=== PATIENT | female | born 1965 | race Caucasian/White ===

== ENCOUNTER 2019-09-02 21:56 | Emergency (ER) | payer BC, OTHER ==
[~2019-09-02] VITALS: Ht 165.1 cm; Wt 59.4 kg
[~2019-09-02 21:56] MED LIST: ACYCLOVIR 200200 MG PO; ACYCLOVIR 800800 MG PO; ALLEGRA-D 24 H1 EACH PO; CINNAMON PLUS1 EACH PO; FLAX SEED OIL1000 MG PO; FLONASE 0.05%50 MCG NASAL; HYDROCHLOROTHIA25 M1 PO; IBUPROFEN 200200 M1 PO; MULTI-VITAMIN1 EAC5 PO; NITROFURANTOIN100 MG PO; NORVASC 5 MG TAB5 MG PO; PAXIL CR12.5 MG PO; PAXIL CR37.5 MG PO; RED YEAST RICE600 MG PO; TRAZODONE 150150 M1 PO; [UNRECOGNIZED DRUG - OTHER]; [UNRECOGNIZED DRUG - OTHER] PO
[2019-09-03] MEDS ORDERED: PROAIR HFA8.5 GM INH (00:38)
[2019-09-03 00:41] VITALS: BP 111/84
== END 2019-09-03 00:51 | disposition home or self-care (01) ==
LOC: ER 21:56
DX: J10.1 Influenza due to other identified influenza virus with other respiratory manifestations (principal); I10 Essential (primary) hypertension; E78.00 Pure hypercholesterolemia, unspecified; F41.9 Anxiety disorder, unspecified; Z90.710 Acquired absence of both cervix and uterus; Z98.51 Tubal ligation status; Z88.1 Allergy status to other antibiotic agents; Z88.2 Allergy status to sulfonamides; Z88.6 Allergy status to analgesic agent